=== PATIENT | male | born 1960 | race Caucasian/White ===

== ENCOUNTER 2020-03-26 09:35 | Emergency (ER) | payer OTHER, MEDICARE ==
[~2020-03-26] VITALS: Ht 182.9 cm; Wt 141.7 kg
[2020-03-26] MEDS ORDERED: IV NORMAL SALINE 1000ML BAG 1,000 ML IV SCH (09:42)
[2020-03-26] MEDS ORDERED: fentaNYL PF VIAL 100 MCG/2 ML VIAL IV PRN (09:45)
[2020-03-26 10:33] LABS: CREATININE 1.4 mg/dL (0.7-1.3); GFR 51.5; POTASSIUM 3.9 mmol/L (3.5-5.1)
[2020-03-26 10:36] LABS: BASO % 0 % (0-3); BILIRUBIN,URINE NEGATIVE (NEG); CLARITY,URINE CLEAR; COLOR,URINE YELLOW; EOS # 0.1 x10^3/uL (0.0-0.7); EOS % 1 % (0-3); HEMATOCRIT 47.8 % (39.0-53.0); HEMOGLOBIN 16.2 g/dL (13.0-17.5); LYMPH # 1.5 x10^3/uL (1.0-4.8); LYMPH % 19 % (24-48); MEAN CORPUSCULAR HEMOGLOBIN 31 pg (25-35); MEAN CORPUSCULAR HGB CONC 34 g/dL (31-37); MEAN CORPUSCULAR VOLUME 92 fL (79-100); MONO # 0.6 x10^3/uL (0.0-1.1); MONO % 8 % (0-9); NEUT # 5.7 x10^3/uL (1.8-7.7); NEUT % 72 % (31-73); NITRITE,URINE NEGATIVE (NEG); PH,URINE 5.5 (<5.0-8.0); PLATELET COUNT 163 x10^3/uL (140-400); PROTEIN,URINE NEGATIVE (NEG-TRACE); RED BLOOD COUNT 5.19 x10^6/uL (4.30-5.70); RED CELL DISTRIBUTION WIDTH 14.5 % (11.5-14.5)
[2020-03-26 10:38] LABS: ALBUMIN 3.5 g/dL (3.4-5.0); TOTAL PROTEIN 7.1 g/dL (6.4-8.2)
[2020-03-26] MEDS ORDERED: IOHEXOL 300 MG/ML 100ML VIAL. IV ONE (10:45)
[2020-03-26] MEDS ORDERED: CONTRAST GIVEN. MC PRN (10:45)
[2020-03-26 10:46] LABS: AMPHETAMINE/METHAMPHETAMINE NEG (NEG); BARBITURATES NEG (NEG); BENZODIAZEPINES NEG (NEG); CANNABINOIDS NEG (NEG); COCAINE NEG (NEG); METHADONE NEG (NEG); OPIATES NEG (NEG); PHENCYCLIDINE NEG (NEG)
[2020-03-26 10:48] LABS: BACTERIA,URINE 0 /HPF (0-FEW); PROTHROMBIN TIME PATIENT 13.6 SEC (11.7-14.0); RBC,URINE 0 /HPF (0-2); SQUAMOUS EPITHELIAL CELL,UR FEW /LPF; WBC,URINE OCC /HPF (0-4)
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
[2020-03-26] MEDS ORDERED: METH-38 PO (11:46)
[2020-03-26] MEDS ORDERED: NAPR-514 PO (11:46)
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
[2020-03-26] MEDS ORDERED: ORPHENADRINE CITRATE 60 MG/2 ML VIAL. IV ONE (12:00)
[2020-03-26] MEDS ORDERED: KETOROLAC 30 MG/ML VIAL. IV ONE (12:00)
[2020-03-26 13:20] VITALS: BP 192/95
--- NOTE | 2020-03-27 04:35 | EKG ---
[facility] [address] [place] [address] Test Date: 2020-03-26 Test Time: 09:41:59 Pat Name: TITA ROONEY Department: Room: Gender: M [employer]: : 1960 Requested By: MAGDALENE ESCOBEDO Order Number: [id number] Reading MD: Measurements Intervals [place] Rate: 68 P: SD: QRS: -30 QRSD: 134 T: 141 QT: 414 QTc: 445 Interpretive Statements IRREGULAR RHYTHM, NO P-WAVE FOUND ABNORMAL LEFT AXIS DEVIATION NON SPECIFIC INTRAVENTRICULAR BLOCK QRS(T) CONTOUR ABNORMALITY CONSIDER ANTEROSEPTAL MYOCARDIAL DAMAGE ABNORMAL ECG RI6.01 No previous ECG available for comparison
== END 2020-03-26 13:58 | disposition home or self-care (01) ==
LOC: ER 09:35
DX: S13.9XXA Sprain of joints and ligaments of unspecified parts of neck, initial encounter (principal); S30.1XXA Contusion of abdominal wall, initial encounter; S20.212A Contusion of left front wall of thorax, initial encounter; S00.93XA Contusion of unspecified part of head, initial encounter; R10.9 Unspecified abdominal pain; I48.91 Unspecified atrial fibrillation; Z87.891 Personal history of nicotine dependence; V47.5XXA Car driver injured in collision with fixed or stationary object in traffic accident, initial encounter; Y92.488 Other paved roadways as the place of occurrence of the external cause; Y93.89 Activity, other specified; Y99.8 Other external cause status
CPT/HCPCS: 36415; 70450; 71260; 72125; 74177; 80053; 80307; 81001; 85025; 85610; 85730; 93005; 96374; 96375; 99285; G0480; J1885; J2360; J7030; Q9967